=== PATIENT | female | born 1955 | race American Indian/Alaskan Native ===

== ENCOUNTER 2016-05-23 11:29 | Day surgery (SDC) | payer OTHER ==
[2016-05-23] MEDS ORDERED: NACL 0.9% 1000 ML 1,000 ML IV SCH (12:00)
--- NOTE | 2016-05-23 12:50 | Anesthesia Day of Surgery ---
Anesthesia Day of Surgery - Day of Surgery Patient Examined: Yes Patient H&P Reviewed: Yes Patient is NPO: Yes
--- NOTE | 2016-05-23 12:50 | Anesthesia Consultation ---
Anesthesia Consult and Med Hx Date of service: 05/23/16 - Airway Anesthetic Teeth Evaluation: Poor ROM Head & Neck: Adequate Mental/Hyoid Distance: Adequate Mallampati Class: Class II Intubation Access Assessment: Probably Good - Pulmonary Exam CTA: Yes - Cardiac Exam Cardiac Exam: RRR - Pre-Operative Health Status ASA Pre-Surgery Classification: ASA3 - Pulmonary Hx Smoking: Yes - Cardiovascular System Hx Hypertension: Yes - Endocrine Hx Non-Insulin Dependent Diabetes: Yes
[2016-05-23] MEDS ORDERED: DIPRIVAN 10 MG/ML IV ONE ×2 (13:08)
[2016-05-23] MEDS ORDERED: XYLOCAINE MPF 2% ONE (13:16)
[2016-05-23 14:11] VITALS: BP 129/75
--- NOTE | 2016-05-23 14:58 | Post Anesthesia Evaluation ---
- Post Anesthesia Evaluation Patient Participated: Yes Airway Patent: Yes Stable Respiratory Function: Yes Temp > 96.8F: Yes Pain Manageable: Yes Adequeate Hydration: Yes Anesthesia Complications: No Block Receding Appropriately: Not Applicable
--- NOTE | 2016-05-23 14:58 | Operative Report ---
Operative Report Operative Report: Date of procedure: 05/23/2016 Procedure: Colonoscopy Attending physician: Vishnu Quinn MD Rubber Compounder Mixer: Vishnu Quinn MD Indication: 60-year-old female who presents for colorectal cancer screening. Patient has a past history of colon polyps. Consent: Informed consent was obtained after advising the patient and family regarding nature of this procedure, its indications, potential benefits as well as possible complications including but not limited to bleeding perforation and adverse reaction to medication, infection as well as other cardiopulmonary complications. An informed written and verbal consent was then obtained after due opportunity was provided for questions and answers. Monitoring: Patient was monitored continuously with pulse oximetry and electrocardiographic recordings as well as blood pressure recordings. Vital signs remained stable throughout this procedure with no untoward events. Preoperative assessment: Patient was assessed immediately prior to this procedure for capacity to tolerate monitored anesthesia care and moderate sedation as well as general anesthesia. Patient's ASA classification is 2, Mallampati class is 2, Hyomental distance is 3. Instrument: Fujinon videocolonoscope Medications: Propofol given intravenously in divided doses. For details please refer to anesthesia records. Description of procedure: Patient was placed in the left lateral decubitus position after achieving sedation, a digital rectal examination was performed following which the colonoscope was introduced into the anal verge and advanced to the cecum which was identified by the cecal valve, the appendiceal orifice, as well as by the cecal strap and direct transillumination. The colonoscope was subsequently withdrawn with careful inspection of all mucosal surfaces. Patient tolerated this procedure well and was subsequently taken to the recovery room. The following findings were noted. Findings: Patient has scattered thick liquid stool in various sections of the colon which was irrigated as much as possible. There were no gross mucosal abnormalities seen. On the retroflex view at the anal verge, patient had internal hemorrhoids. Impression: Thick liquid stool. Internal hemorrhoids. Patient otherwise was normal colonoscopy. Plan: Repeat colonoscopy in 5 years, because of past history of colon polyps.. High-fiber diet.
--- NOTE | 2016-05-23 15:02 | Discharge Summary ---
Short Stay Discharge Plan Activity: advance as tolerated Weight Bearing Status: Weight Bear as Tolerated Diet: regular Additional Instructions: Post Sedation D/C Instructions When you return home you may resume your regular diet unless otherwise directed. -Go directly home from the hospital and rest quietly. You may resume normal activities tomorrow. -Do NOT drive, return to work, operate any machinery or make any important personal or business decisions today. -Do NOT drink any alcohol or take nerve or sleeping drugs. They add to the effects of the medicine still present in your body. Follow up with: RODRIGO SINGH MD [Primary Care Provider] - 7 Days
== END 2016-05-23 11:30 | disposition home or self-care (01) ==
LOC: GIO 11:29
PROVIDERS: ATTEND Internal Medicine Gastroenterology
DX: Z12.11 Encounter for screening for malignant neoplasm of colon (principal); K64.8 Other hemorrhoids; I10 Essential (primary) hypertension; E11.9 Type 2 diabetes mellitus without complications; Z87.891 Personal history of nicotine dependence; Z83.71 Family history of colonic polyps; Z86.010 Personal history of colon polyps
CPT/HCPCS: 45378; J2704; J7030

== ENCOUNTER 2017-07-24 22:10 | Emergency (ER) | payer OTHER ==
[2017-07-24] MEDS ORDERED: MORPHINE IM ONE (23:15)
[2017-07-24] MEDS ORDERED: ZOFRAN ODT PO ONE (23:15)
--- NOTE | 2017-07-24 23:52 | XRay Report ---
FINAL REPORT PROCEDURE: XR ANKLE 3+V LT TECHNIQUE: LEFT ankle radiographs, AP, lateral, and oblique views. CPT 11750 HISTORY: left ankle pain COMPARISON: No prior studies are available for comparison. FINDINGS: Fracture (s) and/or Dislocation(s): Acute comminuted fractures are noted involving medial and lateral malleoli with disruption of the ankle mortise.. Joint space(s): Ankle mortise is disrupted with increased medial tibiotalar and distal tibiofibular joint spaces. Soft tissues: Moderate degree soft tissue swelling is noted. Bone mineralization: Normal. Foreign bodies: None. Calcaneal spurring: None. IMPRESSION: Acute fractures of medial and lateral malleoli as described above...
--- NOTE | 2017-07-25 00:04 | Emergency Department Report ---
HPI - General Chief Complaint: Extremity Injury, Lower Time Seen by Provider: 07/24/17 22:26 - HPI HPI: The patient is a 61-year-old female who presents with a recent left ankle pain. The patient reports left ankle pain since rolling her ankle approximately 1 hour prior to my evaluation. She complains of constant pain since rolling her ankle, 10/10 in severity, throbbing in quality, exacerbated with attempted movement of the ankle. She denies, injury elsewhere, headache, trauma to the head, neck pain, chest pain, dyspnea, back pain, abdominal pain, proximal left leg pain, numbness, tingling, or loss of sensation in the foot or toes. ED Past Medical Hx - Past Medical History Hx Hypertension: Yes Hx Congestive Heart Failure: No Hx Diabetes: Yes Additional medical history: HYPERCHOLESTEROLEMIA - Social History Smoking Status: Never Smoker Substance Use Type: None - Medications Home Medications: Home Medications Medication Instructions Recorded Confirmed Last Taken Type Canagliflozin (Nf) [Invokana (Nf)] 100 mg PO PRN 03/23/14 05/23/16 05/21/16 History Gabapentin 300 mg PO DAILY 03/23/14 05/23/16 Unknown History Lisinopril 20 mg PO DAILY 03/23/14 05/23/16 05/21/16 History Insulin NPH/Regular [NovoLIN 70/30] 20 unit SUB-Q BIDDIAB #1500 units 03/24/14 05/23/16 Unknown Rx Pantoprazole [Protonix TAB] 40 mg PO QDAY #30 tablet 03/24/14 05/23/16 Unknown Rx Potassium Chloride [K-Dur] 20 meq PO QDAY #5 tablet 03/24/14 05/23/16 Unknown Rx Syringe,Needle,Insuln,Safe,1Ml 1 each MC BID #120 disp.syrin 03/24/14 05/23/16 Unknown Rx [Easy Touch Insulin Safety] Diphenhydramine HCl [Benadryl 25 mg PO Q6H #20 tablet 01/06/16 05/23/16 Unknown Rx Allergy TAB] Hydrocortisone 1% [Hydrocortisone 1 applicatio TP TID #1 tube 01/06/16 05/23/16 Unknown Rx 1% CREAM] Adult Low Dose Aspirin EC 81 mg PO DAILY 05/23/16 05/23/16 05/19/16 History Invokana 300 mg PO DAILY 05/23/16 05/23/16 05/21/16 History Pravastatin 10 mg PO DAILY 05/23/16 05/23/16 05/22/16 History metFORMIN 1,000 mg PO BID 05/23/16 05/23/16 05/21/16 History HYDROcodone/APAP 5-325 [[place] 1 each PO Q6HR PRN #12 tablet 07/25/17 Unknown Rx 5/325] Ondansetron [Zofran TAB] 4 mg PO Q8HR PRN #15 tablet 07/25/17 Unknown Rx ED Review of Systems ROS: Stated complaint: POSS LEFT ANKLE FX Other details as noted in HPI Constitutional: denies: fever ENT: denies: throat or neck pain Respiratory: denies: cough, shortness of breath Cardiovascular: denies: chest pain Endocrine: denies unexplained weight loss or gain Gastrointestinal: denies: abdominal pain, nausea Genitourinary: denies: dysuria Musculoskeletal: reports left ankle pain denies: leg swelling Skin: denies: rash Neurological: denies: headache Hematological/Lymphatic: denies: easy bleeding or easy bruising Psych: denies sadness or hopelessness Physical Exam - Physical Exam Vital Signs: Vital Signs 07/24/17 07/24/17 22:26 22:54 Temperature 97.9 F Pulse Rate 99 H Respiratory 18 16 Rate Blood Pressure 138/84 Blood Pressure 138/84 [Left] O2 Sat by Pulse 97 96 Oximetry Physical Exam: General: well-nourished, well-developed, no acute distress Head: Normocephalic, atraumatic Eyes: normal sclera ENT: Mucous membranes are pink and moist Neck: trachea midline, neck supple, No neck stiffness, no cervical adenopathy Respiratory: Breath sounds equal bilaterally, no wheezing, rales, or rhonchi Cardio: S1 and S2 present, no murmurs, rubs, gallops, capillary refill is brisk Abdomen: Normoactive bowel sounds, soft abdomen, no tenderness Chest WALL/Back: No tenderness to palpation of the chest wall, no CVA tenderness with percussion, no midline thoracic or lumbar tenderness over the spinous process Musc: Swelling and tenderness present to the left lateral malleolus and medial malleolus, dorsalis pedes and posterior tibialis pulses intact in the left foot , capillary refill brisk in the toes, sensation motor function in the left foot and toes intact Skin: No rash Neuro: no facial drooping, normal speech Psych: Normal affect ED Course Vital Signs 07/24/17 07/24/17 22:26 22:54 Temperature 97.9 F Pulse Rate 99 H Respiratory 18 16 Rate Blood Pressure 138/84 Blood Pressure 138/84 [Left] O2 Sat by Pulse 97 96 Oximetry ED Medical Decision Making - Medical Decision Making The patient was seen and examined by myself. The patient is placed on a wildlife conservation officer and continuous pulse ox. On initial evaluation, the patient was found to be in no distress. Evaluation orders were placed. X-ray of the left ankle reveals a trimalleolar fracture of the left ankle. The patient was given morphine for pain. The patient is placed in a Ehsan Splint. The patient was reevaluated and found to have intact sensation and motor function in the left foot and toes, and intact dorsalis pedes and posterior tibialis pulses, brisk capillary refill. Additionally leg and foot compartments are soft and pliable. No signs compartments ago. The patient is counseled regarding importance of follow-up with orthopedic surgery for arrangement of likely needed surgical repair of her left ankle. The patient is given follow-up and return instructions. The patient expressed understanding and agreed with the plan. The patient is discharged in stable condition. Critical care attestation.: If time is entered above; I have spent that time in minutes in the direct care of this critically ill patient, excluding procedure time. ED Disposition Clinical Impression: Closed trimalleolar fracture of left ankle Qualifiers: Encounter type: initial encounter Qualified Code(s): S82.852A - Displaced trimalleolar fracture of left lower leg, initial encounter for closed fracture Disposition: DC-01 TO HOME OR SELFCARE Is pt being admited?: No Does the pt Need Aspirin: No Condition: Stable Instructions: Ankle Fracture (ED) Additional Instructions: Do not take more than the prescribed dose of pain medicine, or combine or take the pain medicine prescribed to you today with other pain medicine, sleeping medicine or other sedatives, or with alcohol, as doing so may cause central nervous system sedation and respiratory depression, and potentially cause you to stop breathing and . Additionally, do not drive a vehicle, operate heavy machinery, or engage in any activity that would cause harm to yourself or others after taking the pain medicine prescribed to you. Prescriptions: HYDROcodone/APAP 5-325 [[place] 5/325] 1 each PO Q6HR PRN #12 tablet PRN Reason: Pain Ondansetron [Zofran TAB] 4 mg PO Q8HR PRN #15 tablet PRN Reason: Nausea Referrals: CAROLE MURRY MD [Staff Physician] - 3-5 Days Time of Disposition: 00:13
[2017-07-25] MEDS ORDERED: NORCO 5/325 PO ONE (00:48)
[2017-07-25] MEDS ORDERED: ZOFRAN ODT PO ONE (01:16)
--- NOTE | 2017-07-25 02:38 | XRay Report ---
FINAL REPORT PROCEDURE: XR ANKLE 2V LT TECHNIQUE: LEFT ankle radiographs, AP, lateral, and oblique views. CPT 48217 HISTORY: left ankle fx, post reduction COMPARISON: 07/24/2017 FINDINGS: Fractures of the distal tibia and fibula are again noted and unchanged in alignment. There is slight lateral displacement of the tibiotalar joint similar to the prior examination. The ankle is in a cast.. IMPRESSION: No change in alignment of fractures of the distal tibia and fibula. There is residual lateral displacement of the tibiotalar joint..
[2017-07-25 03:23] VITALS: BP 149/78
== END 2017-07-25 03:15 | disposition home or self-care (01) ==
LOC: ED 22:10
DX: S82.852A Displaced trimalleolar fracture of left lower leg, initial encounter for closed fracture (principal); I10 Essential (primary) hypertension; E11.9 Type 2 diabetes mellitus without complications; E78.5 Hyperlipidemia, unspecified; Z88.2 Allergy status to sulfonamides; W22.8XXA Striking against or struck by other objects, initial encounter; Y93.89 Activity, other specified; Y99.8 Other external cause status; Y92.89 Other specified places as the place of occurrence of the external cause
CPT/HCPCS: 29515; 73600; 73610; 96372; 99285; J2270; Q0162

== ENCOUNTER 2021-07-16 07:26 | Day surgery (SDC) | payer MEDICARE, OTHER ==
[2021-07-15 10:30] LABS: Hematocrit 35.6 % (30.3-42.9); Hemoglobin 11.8 gm/dl (10.1-14.3); Mean Corpuscular HGB Conc 33 % (30-34); Mean Corpuscular Volume 95 fl (79-97); Platelet Count 310 K/mm3 (140-440); Red Blood Count 3.75 M/mm3 (3.65-5.03); Red Cell Distribution Width 12.9 % (13.2-15.2)
[2021-07-15 10:58] LABS: Blood Urea Nitrogen 28 mg/dL (7-17); Calcium 9.2 mg/dL (8.4-10.2); Hemolysis Index 3
[2021-07-15 11:03] LABS: BUN/Creatinine Ratio 47
[~2021-07-16 07:26] MED LIST: ACETAMINOPHEN 500 MG TAB PO SCH; LACTATED RINGERS 1,000 ML IV SCH; MIDAZOLAM 2 MG/2 ML INJ IV NR
[2021-07-16] MEDS ORDERED: BACTERIOSTATIC SODIUM CHLORIDE 0.9% 30 ML VIAL INFILTRATI ONE (07:39)
[2021-07-16] MEDS ORDERED: ceFAZolin/STERILE WATER 2 GM/20 ML SYRINGE IV NR (08:00)
[2021-07-16] MEDS ORDERED: HYDROmorphone 1 MG/1 ML INJ IV PRN (08:59)
[2021-07-16] MEDS ORDERED: ONDANSETRON 4 MG/2 ML INJ IV PRN (08:59)
--- NOTE | 2021-07-16 08:59 | Anesthesia Consultation ---
Anesthesia Consult and Med Hx Date of service: 07/16/21 - Airway Anesthetic Teeth Evaluation: Poor (multiple missing and broken teeth; denies loose teeth) ROM Head & Neck: Adequate Mental/Hyoid Distance: Adequate Mallampati Class: Class II Intubation Access Assessment: Probably Good - Pre-Operative Health Status ASA Pre-Surgery Classification: ASA2 Proposed Anesthetic Plan: General - Pulmonary Hx Smoking: Yes (former smoker quit >30yrs) Hx Respiratory Symptoms: No - Cardiovascular System Hx Hypertension: Yes (took antihypertensives this morning) Hx Heart Attack/AMI: No (recent negative cardiac w/u for chest pain; records reviewed on chart) Hx Percutaneous Transluminal Coronary Angioplasty (PTCA): No Hx Cardia Arrhythmia: No - Central Nervous System CVA: No - Endocrine Hx Renal Disease: No Hx Liver Disease: No Hx Insulin Dependent Diabetes: Yes (A1c 8.8) Hx Thyroid Disease: No - Other Systems Hx Obesity: No - Additional Comments Anesthesia Medical History Comments: No hx anesthetic complications. Off ASA x1wk.
--- NOTE | 2021-07-16 08:59 | Anesthesia Day of Surgery ---
Anesthesia Day of Surgery - Day of Surgery Patient Examined: Yes Patient H&P Reviewed: Yes Patient is NPO: Yes
[2021-07-16] MEDS ORDERED: BUPIVACAINE/PF (0.25%) 2.5 MG/ML 30 ML VIAL INFILTRATI ONE ×2 (09:16→09:45)
[2021-07-16] MEDS ORDERED: LIDOCAINE (1%) 10 MG/1 ML VIAL 20 ML MDV ONE (09:16)
[2021-07-16] MEDS ORDERED: HYDROmorphone 1 MG/1 ML INJ ONE (09:20)
[2021-07-16] MEDS ORDERED: LIDOCAINE MPF (2%) 20 MG/1 ML VIAL 5 ML ONE (09:20)
[2021-07-16] MEDS ORDERED: MIDAZOLAM 2 MG/2 ML INJ ONE (09:20)
[2021-07-16] MEDS ORDERED: propofoL 200 MG/20 ML VIAL IV ONE (09:20)
[2021-07-16] MEDS ORDERED: HYDROcodone/ACETAMINOPHEN 5-325 MG TAB PO PRN (09:30)
[2021-07-16] MEDS ORDERED: LIDOCAINE (1%) 10 MG/1 ML VIAL 20 ML MDV INFILTRATI ONE (09:46)
--- NOTE | 2021-07-16 10:03 | Short Stay Summary ---
Short Stay Documentation Date of service: 07/16/21 - History Principal diagnosis: soft tissue mass right thigh H&P: obtained from office - Allergies and Medications Current Medications: Allergies Sulfa (Sulfonamide Antibiotics) Allergy (Verified 01/05/16 22:03) Itching Home Medications Medication Instructions Recorded Confirmed Last Taken Type Amlodipine Besylate/Benazepril 1 each PO DAILY 07/15/21 07/16/21 07/16/21 06:15 History [Amlodipine-Benazepril 10-40 mg] Ascorbic Acid [Vitamin C] 1,000 mg PO DAILY 07/15/21 07/15/21 07/15/21 History Aspirin [[place] Aspirin EC] 81 mg PO DAILY 07/15/21 07/16/21 06/18/21 History AtorvaSTATin [Lipitor] 40 mg PO QHS 07/15/21 07/15/21 07/15/21 History Cholecalciferol Vit D3 [Vitamin D3 1,000 unit PO QDAY 07/15/21 07/15/21 07/15/21 History 1,000 UNIT TAB] Empagliflozin [Jardiance] 25 mg PO DAILY 07/15/21 07/15/21 07/15/21 History Insulin Detemir [Levemir Flextouch] 25 unit SQ QHS 07/15/21 07/15/21 07/15/21 History L.acidop,Sid,Lac,Rha/B.lac,Nic 1 tab PO DAILY 07/15/21 07/16/21 07/09/21 History [Advanced Probiotic Capsule] Loratadine [Allergy Relief] 10 mg PO DAILY 07/15/21 07/15/21 07/15/21 History Active Medications Acetaminophen (Acetaminophen 500 Mg Tab) 1,000 mg PO PREOP ELVIN Last Admin: 07/16/21 08:12 Dose: 1,000 mg Hydrocodone Bitart/Acetaminophen (Hydrocodone/Acetaminophen 5-325 Mg Tab) 2 each PO ONCE PRN PRN Reason: Pain, Moderate (4-6) Stop: 07/16/21 12:00 Cefazolin Sodium (Cefazolin/Sterile Water 2 Gm/20 Ml Syringe) 2 gm IV PREOP NR Stop: 07/16/21 20:00 Hydromorphone HCl (Hydromorphone 1 Mg/1 Ml Inj) 0.5 mg IV Q10MIN PRN PRN Reason: Pain , Severe (7-10) Stop: 07/16/21 20:00 Lactated Ringer's (Lactated Ringers) 1,000 mls @ 100 mls/hr IV DIRECT ELVIN Stop: 07/16/21 23:59 Last Admin: 07/16/21 08:15 Dose: 100 mls/hr Midazolam HCl (Midazolam 2 Mg/2 Ml Inj) 2 mg IV PREOP NR Stop: 07/16/21 23:00 Ondansetron HCl (Ondansetron 4 Mg/2 Ml Inj) 4 mg IV ONCE PRN PRN Reason: Nausea And Vomiting Stop: 07/16/21 12:00 - Brief post op/procedure progress note Date of procedure: 07/16/21 Pre-op diagnosis: soft tissue mass right inner thigh Post-op diagnosis: same Procedure: excision soft tissue mass right inner thigh Anesthesia: MAC, local Findings: 8 cm superficial lipoma of right inner thigh Surgeon: SHANNAN RICHMOND Estimated blood loss: minimal Pathology: list (soft tissue mass right this) Condition: stable - Hospital course Hospital course: Pt observed in PACU and discharged to home in stable condition - Disposition Condition at discharge: Good Disposition: 01 HOME / SELF CARE / HOMELESS Short Stay Discharge Plan Activity: no restrictions Diet: regular Wound: open to air, per your surgeon's advice Additional Instructions: SEE PRINTED INSTRUCTIONS Follow up with: RODRIGO SINGH MD [Primary Care Provider] - 7 Days SHANNAN RICHMOND DO [Staff Physician] - 14 Days Prescriptions: traMADoL [Ultram] 50 mg PO Q8H PRN #5 tablet PRN Reason: Pain , Severe (7-10)
--- NOTE | 2021-07-16 10:20 | Operative Report ---
Operative Report Operative Report: Date of procedure: 07/16/21 Pre-op diagnosis: soft tissue mass right inner thigh Post-op diagnosis: same Procedure: Excision soft tissue mass right inner thigh Anesthesia: MAC, local Findings: 8 cm superficial lipoma of right inner thigh Surgeon: SHANNAN RICHMOND Estimated blood loss: minimal Pathology: list (soft tissue mass right thigh) Condition: stable Hospital course: Pt observed in PACU and discharged to home in stable condition Condition at discharge: Good Disposition: 01 HOME / SELF CARE HPI and indication: Patient is a 65-year-old female with a history of a soft tissue mass of her right inner thigh that had been growing over time. The patient was seen by her PCP who recommended surgical evaluation for excision. The patient denied any redness or drainage from the area and only mild discomfort. All risks, benefits, alternatives to surgery were discussed and questions answered. Consent obtained for excision of soft tissue mass right thigh Procedure in detail: The patient was identified in the preoperative area and the operative site marked. She was taken back to the operating room and placed on the operating room table in supine position. After anesthesia was induced the right leg was frog legged and the right inner thigh was prepped and draped in the usual sterile fashion and a timeout was performed. Local anesthetic was infiltrated to skin at the intended incision site. A transverse incision was made in the area over the mass using a 10 blade. Dissection was carried down through the subcutaneous tissue using metzenbaum scissors and bovie elec trocautery until the mass was encountered. The mass was circumfrentially dissected from the surrounding tissue until it was completely free and excised from wound. This was measured at 8 cm, was lobulated and fatty consistent with a lipoma. It was passed off the table as a specimen. The wound was then checked for hemostasis. The wound was irrigated and hemostasis very carefully ensured. The skin was approximated using 4-0 Monocryl running subcuticular stitch and skin glue. Once the glue was dry the skin was cleansed and dried and a folded up 4 x 4 gauze was placed at the site and secured with Medipore tape. At the end of the case, all sponge, instrument, sharp counts were correct x2. The patient was awoken from anesthesia and taken to PACU in stable condition.
--- NOTE | 2021-07-16 11:37 | Post Anesthesia Evaluation ---
- Post Anesthesia Evaluation Patient Participated: Yes Airway Patent: Yes Stable Respiratory Function: Yes Nausea/Vomiting: No Temp > 96.8F: Yes Pain Manageable: Yes Adequeate Hydration: Yes Anesthesia Complications: No
[2021-07-16 12:51] VITALS: BP 114/56
== END 2021-07-16 12:26 | disposition home or self-care (01) ==
LOC: OR 07:26
PROVIDERS: ATTEND Surgery
DX: M79.89 Other specified soft tissue disorders (principal); D17.23 Benign lipomatous neoplasm of skin and subcutaneous tissue of right leg; E13.10 Other specified diabetes mellitus with ketoacidosis without coma; E78.5 Hyperlipidemia, unspecified; K21.9 Gastro-esophageal reflux disease without esophagitis; I11.0 Hypertensive heart disease with heart failure; I50.9 Heart failure, unspecified; J45.909 Unspecified asthma, uncomplicated; Z20.822 Contact with and (suspected) exposure to COVID-19; Z91.81 History of falling; Z87.891 Personal history of nicotine dependence; Z88.2 Allergy status to sulfonamides; Z98.890 Other specified postprocedural states; Z79.899 Other long term (current) drug therapy; Z90.721 Acquired absence of ovaries, unilateral
CPT/HCPCS: 27337; 36415; 80048; 82962; 85027; 88305; J0690; J1170; J2250; J2704; J3490; J7120; U0003; 88304